=== PATIENT | female | born 1990 | race Caucasian/White ===

== ENCOUNTER 2016-07-11 15:32 | Emergency (ER) | payer MEDICAID ==
[2016-07-11 16:08] LABS: UDS - AMPHET NEGATIVE QUAL (NEGATIVE); UDS - BARB NEGATIVE QUAL (NEGATIVE); UDS - BENZO NEGATIVE QUAL (NEGATIVE); UDS - COCAINE NEGATIVE QUAL (NEGATIVE); UDS - METH NEGATIVE QUAL (NEGATIVE); UDS - OPIATE NEGATIVE QUAL (NEGATIVE); UDS - PCP NEGATIVE QUAL (NEGATIVE); UDS - THC POSITIVE QUAL (NEGATIVE)
[2016-07-11 17:40] LABS: BASOPHILS 0.4 % (0.0-2.0); EOSINOPHILS 3.7 % (0-7); HEMATOCRIT 42.7 % (36.0-48.0); HEMOGLOBIN 14.6 g/dL (12-16); IMMATURE GRANULOCYTES 0.3 % (0-5); LYMPHOCYTES 25.9 % (15-50); MCH 32.3 pg (26.0-34.0); MCHC 34.2 g/dL (31.0-37.0); MCV 94.5 fL (80.0-100.0); MEAN PLATELET VOLUME 9.1 fL (7.4-10.4); MONOCYTES 7.2 % (2-11); NEUTROPHILS 62.5 % (40-80); PLATELET COUNT 238 10x3/uL (130-400); RBC 4.52 10x6/uL (4.00-5.40); RDW 12.6 % (11.5-14.5); WBC 7.8 10x3/uL (4.8-10.8)
[2016-07-11 18:16] LABS: ALBUMIN 3.6 g/dL (3.4-5.0); ALKALINE PHOSPHATASE 57 U/L (46-116); ALT (SGPT) 24 U/L (10-68); BILIRUBIN - TOTAL 0.71 mg/dL (0.2-1.3); CALC OSMOLALITY 278 mosm/kg (275-300); CALCIUM 8.5 mg/dL (8.5-10.1); CARBON DIOXIDE 25.9 mmol/L (21.0-32.0); CHLORIDE - SERUM 108 mmol/L (98-107); CREATININE - SERUM 0.7 mg/dL (0.6-1.3); GLUCOSE 95 mg/dL (74-106); POTASSIUM - SERUM 3.9 mmol/L (3.5-5.1); SODIUM 141 mmol/L (136-145); UREA NITROGEN 7 mg/dL (7-18); eGFR NON AFRICAN AMERICAN > 90 mL/min (90-120)
== END 2016-07-11 19:00 | disposition home or self-care (01) ==
LOC: D.ER 15:32
PROVIDERS: Emergency Medicine; Physician Assistant Medical
DX: G40.909 Epilepsy, unspecified, not intractable, without status epilepticus (principal); F32.9 Major depressive disorder, single episode, unspecified; I10 Essential (primary) hypertension; F17.200 Nicotine dependence, unspecified, uncomplicated

== ENCOUNTER 2018-04-24 20:20 | Outpatient (CLI) | payer MEDICAID ==
[2018-04-24 22:34] LABS: APPEARANCE CLEAR (CLEAR); BILIRUBIN NEGATIVE (NEGATIVE); COLOR YELLOW (YELLOW); GLUCOSE NEGATIVE (NEGATIVE); KETONE MODERATE mg/dL (NEGATIVE); NITRITE NEGATIVE (NEGATIVE); PROTEIN NEGATIVE (NEGATIVE); UROBILINOGEN NORMAL (NORMAL)
[2018-04-24 22:36] LABS: EPITHELIAL CELLS 0-5 /hpf (0-5); RED CELLS - URINE OCC /hpf (0-5)
[2018-04-24 22:37] LABS: BACTERIA MODERATE /hpf (NONE SEEN)
== END 2018-04-24 23:10 | disposition home or self-care (01) ==
LOC: D.LDO 20:20
PROVIDERS: Obstetrics & Gynecology
DX: O26.893 Other specified pregnancy related conditions, third trimester (principal); Z3A.32 32 weeks gestation of pregnancy; R51 Headache; R11.2 Nausea with vomiting, unspecified; R50.9 Fever, unspecified; O36.8130 Decreased fetal movements, third trimester, not applicable or unspecified

== ENCOUNTER → 2018-06-08 12:24 | Outpatient (CLI) | payer MEDICAID | END | disposition home or self-care (01) | LOC: D.LDO 12:24 | DX: O26.893 Other specified pregnancy related conditions, third trimester (principal); Z3A.28 28 weeks gestation of pregnancy ==

== ENCOUNTER → 2018-07-04 10:37 | Outpatient (CLI) | payer MEDICAID ==
--- NOTE | 2018-07-04 08:42 | NUR ---
PT SITTING UP IN BED. AWAKE. AAO X 3. VSS. HRRR WITHOUT AUDIBLE MURMUR. BBS CLEAR. BS X 4. ABDOMEN SOFT/NON-DISTENDED. FUNDUS FIRM AT U/2. RUBRA LOCHIA SMALL AMT. MILD EDEMA NOTED TO PERINEUM. NEG HOMANS' SIGN. NO EDEMA NOTED TO BLE. PT C/O PAIN TO PERINEUM OF "6" ON 0-10 PAIN SCALE.
== END | disposition home or self-care (01) ==
LOC: D.LDO 10:37
PROVIDERS: Obstetrics & Gynecology
DX: O24.419 Gestational diabetes mellitus in pregnancy, unspecified control (principal); Z3A.32 32 weeks gestation of pregnancy

== ENCOUNTER 2018-07-10 17:58 | Outpatient (CLI) | payer MEDICAID ==
[2018-07-10 19:07] LABS: HEMATOCRIT 42.2 % (36.0-48.0); HEMOGLOBIN 14.4 g/dL (12-16); MCH 31.6 pg (26.0-34.0); MCHC 34.1 g/dL (31.0-37.0); MCV 92.7 fL (80.0-100.0); MEAN PLATELET VOLUME 9.4 fL (7.4-10.4); RBC 4.55 10x6/uL (4.00-5.40); RDW 14.4 % (11.5-14.5); WBC 9.7 10x3/uL (4.8-10.8)
[2018-07-10 19:30] LABS: ALT (SGPT) 22 U/L (10-68); CALC OSMOLALITY 275 mosm/kg (275-300); CALCIUM 8.5 mg/dL (8.5-10.1); CARBON DIOXIDE 22.4 mmol/L (21.0-32.0); CHLORIDE - SERUM 102 mmol/L (98-107); CREATININE - SERUM 0.7 mg/dL (0.6-1.3); GLUCOSE 111 mg/dL (74-106); POTASSIUM - SERUM 3.4 mmol/L (3.5-5.1); SODIUM 138 mmol/L (136-145); UREA NITROGEN 10 mg/dL (7-18); URIC ACID 4.2 mg/dL (2.6-7.2); eGFR NON AFRICAN AMERICAN > 90 mL/min (90-120)
[2018-07-12 00:48] LABS: PROTEIN - URINE 24.5 mg/dL (0.0-11.9)
== END 2018-07-10 21:00 | disposition home or self-care (01) ==
LOC: D.LDO 17:58
PROVIDERS: Obstetrics & Gynecology
DX: O26.899 Other specified pregnancy related conditions, unspecified trimester (principal); Z3A.00 Weeks of gestation of pregnancy not specified

== ENCOUNTER → 2018-07-13 15:24 | Outpatient (CLI) | payer MEDICAID | END | disposition home or self-care (01) | LOC: D.LDO 15:24 | DX: O24.419 Gestational diabetes mellitus in pregnancy, unspecified control (principal); Z3A.33 33 weeks gestation of pregnancy ==

== ENCOUNTER → 2018-07-16 15:33 | Outpatient (CLI) | payer MEDICAID | END | disposition home or self-care (01) | LOC: D.LDO 15:33 | DX: O13.3 Gestational [pregnancy-induced] hypertension without significant proteinuria, third trimester (principal); Z3A.34 34 weeks gestation of pregnancy; O24.419 Gestational diabetes mellitus in pregnancy, unspecified control ==

== ENCOUNTER → 2018-07-20 11:37 | Outpatient (CLI) | payer MEDICAID ==
[2018-07-20 13:03] LABS: BASOPHILS 0.2 % (0-2); HEMATOCRIT 40.7 % (36.0-48.0); HEMOGLOBIN 13.8 g/dL (12-16); IMMATURE GRANULOCYTES 0.3 % (0-5); LYMPHOCYTES 17.3 % (15-50); MCH 31.9 pg (26.0-34.0); MCHC 33.9 g/dL (31.0-37.0); MEAN PLATELET VOLUME 9.7 fL (7.4-10.4); NEUTROPHILS 74.2 % (40-80); PLATELET COUNT 257 10x3/uL (130-400); RBC 4.33 10x6/uL (4.00-5.40); RDW 14.3 % (11.5-14.5); WBC 8.7 10x3/uL (4.8-10.8)
[2018-07-20 13:21] LABS: ALT (SGPT) 29 U/L (10-68); CALC OSMOLALITY 275 mosm/kg (275-300); CALCIUM 7.8 mg/dL (8.5-10.1); CARBON DIOXIDE 24.9 mmol/L (21.0-32.0); CHLORIDE - SERUM 105 mmol/L (98-107); CREATININE - SERUM 0.6 mg/dL (0.6-1.3); GLUCOSE 97 mg/dL (74-106); POTASSIUM - SERUM 3.9 mmol/L (3.5-5.1); SODIUM 139 mmol/L (136-145); UREA NITROGEN 8 mg/dL (7-18); URIC ACID 4.2 mg/dL (2.6-7.2); eGFR NON AFRICAN AMERICAN > 90 mL/min (90-120)
[2018-07-22 22:02] LABS: PROTEIN - URINE 68.2 mg/dL (0.0-11.9)
== END | disposition home or self-care (01) ==
LOC: D.LDO 11:37
PROVIDERS: Obstetrics & Gynecology
DX: O26.899 Other specified pregnancy related conditions, unspecified trimester (principal); Z3A.00 Weeks of gestation of pregnancy not specified

== ENCOUNTER → 2018-07-21 13:47 | Outpatient (CLI) | payer MEDICAID | END | disposition home or self-care (01) | LOC: D.LDO 13:47 → D.LABREF 13:47 | DX: O26.899 Other specified pregnancy related conditions, unspecified trimester (principal); Z3A.00 Weeks of gestation of pregnancy not specified ==

== ENCOUNTER → 2018-07-24 16:18 | Outpatient (CLI) | payer MEDICAID | END | disposition home or self-care (01) | LOC: D.LDO 16:18 | DX: O24.913 Unspecified diabetes mellitus in pregnancy, third trimester (principal); O10.913 Unspecified pre-existing hypertension complicating pregnancy, third trimester; Z3A.35 35 weeks gestation of pregnancy ==

== ENCOUNTER 2018-07-27 18:55 | Outpatient (CLI) | payer MEDICAID | END 2018-07-27 20:58 | disposition home or self-care (01) | LOC: D.LDO 18:55 | DX: O26.899 Other specified pregnancy related conditions, unspecified trimester (principal); Z3A.00 Weeks of gestation of pregnancy not specified ==

== ENCOUNTER → 2018-07-30 11:08 | Outpatient (CLI) | payer MEDICAID | END | disposition home or self-care (01) | LOC: D.US 11:08 | DX: O24.419 Gestational diabetes mellitus in pregnancy, unspecified control (principal); Z3A.00 Weeks of gestation of pregnancy not specified ==

== ENCOUNTER → 2018-07-30 12:07 | Outpatient (CLI) | payer MEDICAID | END | disposition home or self-care (01) | LOC: D.LDO 12:07 | DX: O24.913 Unspecified diabetes mellitus in pregnancy, third trimester (principal); O10.913 Unspecified pre-existing hypertension complicating pregnancy, third trimester; Z3A.36 36 weeks gestation of pregnancy ==

== ENCOUNTER 2018-08-02 12:04 | Outpatient (CLI) | payer MEDICAID | END 2018-08-02 16:33 | LOC: D.LDO 12:04 → D.LD 12:04 → D.LDO 16:33 → D.LD 16:33 | DX: O24.913 Unspecified diabetes mellitus in pregnancy, third trimester (principal); O10.913 Unspecified pre-existing hypertension complicating pregnancy, third trimester; Z3A.49 Greater than 42 weeks gestation of pregnancy ==

== ENCOUNTER 2018-08-02 16:49 | Outpatient (CLI) | payer MEDICAID ==
[2018-08-02 17:26] LABS: BASOPHILS 0.1 % (0-2); EOSINOPHILS 0.4 % (0-7); HEMATOCRIT 42.3 % (36.0-48.0); HEMOGLOBIN 14.6 g/dL (12-16); IMMATURE GRANULOCYTES 0.3 % (0-5); MCH 31.8 pg (26.0-34.0); MCHC 34.5 g/dL (31.0-37.0); MCV 92.2 fL (80.0-100.0); MEAN PLATELET VOLUME 9.5 fL (7.4-10.4); MONOCYTES 6.7 % (2-11); NEUTROPHILS 79.5 % (40-80); PLATELET COUNT 288 10x3/uL (130-400); RBC 4.59 10x6/uL (4.00-5.40); WBC 11.7 10x3/uL (4.8-10.8)
[2018-08-02 17:43] LABS: ALBUMIN 2.1 g/dL (3.4-5.0); ALKALINE PHOSPHATASE 132 U/L (46-116); ALT (SGPT) 23 U/L (10-68); BILIRUBIN - DIRECT 0.09 mg/dL (0.00-0.30); BILIRUBIN - INDIRECT 0.25 mg/dL (0.00-1.00); BILIRUBIN - TOTAL 0.34 mg/dL (0.2-1.3); CALC OSMOLALITY 277 mosm/kg (275-300); CALCIUM 7.8 mg/dL (8.5-10.1); CARBON DIOXIDE 22.1 mmol/L (21.0-32.0); CHLORIDE - SERUM 105 mmol/L (98-107); CREATININE - SERUM 0.6 mg/dL (0.6-1.3); GLUCOSE 122 mg/dL (74-106); POTASSIUM - SERUM 3.5 mmol/L (3.5-5.1); PROTEIN - SERUM 6.2 g/dL (6.4-8.2); SODIUM 139 mmol/L (136-145); UREA NITROGEN 10 mg/dL (7-18); URIC ACID 4.4 mg/dL (2.6-7.2); eGFR NON AFRICAN AMERICAN > 90 mL/min (90-120)
[2018-08-04 00:23] LABS: PROTEIN - URINE 34.7 mg/dL (0.0-11.9)
== END 2018-08-02 20:04 ==
LOC: D.LDO 16:49 → D.LD 16:52 → D.LDO 20:04
PROVIDERS: Obstetrics & Gynecology
DX: O26.893 Other specified pregnancy related conditions, third trimester (principal); Z3A.36 36 weeks gestation of pregnancy

== ENCOUNTER → 2018-08-04 00:35 | Outpatient (CLI) | payer MEDICAID | END | disposition home or self-care (01) | LOC: D.LDO 00:35 | DX: O13.9 Gestational [pregnancy-induced] hypertension without significant proteinuria, unspecified trimester (principal); O24.419 Gestational diabetes mellitus in pregnancy, unspecified control; Z3A.00 Weeks of gestation of pregnancy not specified ==

== ENCOUNTER → 2018-08-09 10:16 | Outpatient (CLI) | payer MEDICAID | END | disposition home or self-care (01) | LOC: D.LDO 10:16 | PROVIDERS: ATTEND Obstetrics & Gynecology | DX: O13.3 Gestational [pregnancy-induced] hypertension without significant proteinuria, third trimester (principal); O24.913 Unspecified diabetes mellitus in pregnancy, third trimester; Z3A.37 37 weeks gestation of pregnancy ==

== ENCOUNTER 2018-08-12 22:05 | Outpatient (CLI) | payer MEDICAID ==
[2018-08-12 22:26] LABS: APPEARANCE CLEAR (CLEAR); BILIRUBIN NEGATIVE (NEGATIVE); COLOR YELLOW (YELLOW); GLUCOSE NEGATIVE (NEGATIVE); KETONE NEGATIVE (NEGATIVE); NITRITE NEGATIVE (NEGATIVE); PROTEIN NEGATIVE (NEGATIVE); UROBILINOGEN NORMAL (NORMAL)
[2018-08-12 22:34] LABS: UDS - AMPHET NEGATIVE QUAL (NEGATIVE); UDS - BARB NEGATIVE QUAL (NEGATIVE); UDS - BENZO NEGATIVE QUAL (NEGATIVE); UDS - COCAINE NEGATIVE QUAL (NEGATIVE); UDS - OPIATE NEGATIVE QUAL (NEGATIVE); UDS - PCP NEGATIVE QUAL (NEGATIVE); UDS - THC NEGATIVE QUAL (NEGATIVE)
[2018-08-16 23:48] VITALS: BMI 44.0
== END 2018-08-12 22:55 | disposition home or self-care (01) ==
LOC: D.LDO 22:05
PROVIDERS: ATTEND Obstetrics & Gynecology
DX: O26.893 Other specified pregnancy related conditions, third trimester (principal); Z3A.38 38 weeks gestation of pregnancy

== ENCOUNTER → 2018-08-14 16:23 | Outpatient (CLI) | payer MEDICAID ==
[~2018-08-14 16:23] MED LIST: ACETAMINOPHEN325 MG PO; GLUCOPHAGE500 MG PO; GLYBURIDE2.5 MG PO; PRENAVITE1 TAB PO
[2018-08-14 18:00] LABS: APPEARANCE CLEAR (CLEAR); BILIRUBIN NEGATIVE (NEGATIVE); COLOR YELLOW (YELLOW); GLUCOSE NEGATIVE (NEGATIVE); KETONE NEGATIVE (NEGATIVE); NITRITE NEGATIVE (NEGATIVE); PROTEIN TRACE mg/dL (NEGATIVE); UROBILINOGEN NORMAL (NORMAL)
[2018-08-14 18:03] LABS: EPITHELIAL CELLS 0-5 /hpf (0-5); RED CELLS - URINE OCC /hpf (0-5); WHITE CELLS - URINE 0-5 /hpf (0-5)
[2018-08-14 18:04] LABS: BACTERIA FEW /hpf (NONE SEEN)
[2018-08-16 23:48] VITALS: BMI 44.0
== END | disposition home or self-care (01) ==
LOC: D.LDO 16:23
PROVIDERS: ATTEND Obstetrics & Gynecology
DX: O13.3 Gestational [pregnancy-induced] hypertension without significant proteinuria, third trimester (principal); Z3A.38 38 weeks gestation of pregnancy

== ENCOUNTER → 2018-08-15 17:28 | Outpatient (CLI) | payer MEDICAID ==
[2018-08-16 23:48] VITALS: BMI 44.0
== END | disposition home or self-care (01) ==
LOC: D.LDO 17:28
PROVIDERS: ATTEND Obstetrics & Gynecology
DX: O26.893 Other specified pregnancy related conditions, third trimester (principal); N89.8 Other specified noninflammatory disorders of vagina

== ENCOUNTER 2018-08-16 20:42 | Inpatient (IN) | payer MEDICAID ==
[~2018-08-16] VITALS: Ht 167.6 cm; Wt 123.4 kg
[2018-08-16 23:08] LABS: HEMATOCRIT 43.4 % (36.0-48.0); HEMOGLOBIN 15.1 g/dL (12-16); MCH 31.9 pg (26.0-34.0); MCHC 34.8 g/dL (31.0-37.0); MCV 91.6 fL (80.0-100.0); MEAN PLATELET VOLUME 9.7 fL (7.4-10.4); RBC 4.74 10x6/uL (4.00-5.40); RDW 13.8 % (11.5-14.5)
[2018-08-16 23:19] LABS: UDS - AMPHET NEGATIVE QUAL (NEGATIVE); UDS - BARB NEGATIVE QUAL (NEGATIVE); UDS - BENZO NEGATIVE QUAL (NEGATIVE); UDS - COCAINE NEGATIVE QUAL (NEGATIVE); UDS - OPIATE NEGATIVE QUAL (NEGATIVE); UDS - PCP NEGATIVE QUAL (NEGATIVE); UDS - THC NEGATIVE QUAL (NEGATIVE)
[2018-08-16] MEDS ORDERED: GLYBURIDE2.5 MG PO (23:46)
[2018-08-16] MEDS ORDERED: PRENAVITE1 TAB PO (23:47)
[2018-08-16] MEDS ORDERED: GLUCOPHAGE500 MG PO (23:47)
[2018-08-16] MEDS ORDERED: ACETAMINOPHEN325 MG PO (23:47)
[2018-08-16 23:48] VITALS: BP 139/84; Ht 167.6 cm; Wt 123.4 kg
--- NOTE | 2018-08-17 19:33 | NUR ---
REMAINS IN NBN WITH . WILL CONTINUE TO MONITOR AND ASSIST PRN.
--- NOTE | 2018-08-17 19:38 | NUR ---
TO L&D DESK, REPORTS THAT 'S BATH IS FINISHED. AMBULATORY TO ROOM 1257 FOR CONTINUED PP CARE. ORIENTED TO ROOM, CALL LIGHT USE, BED RAILS, AND BATHROOM, AND HOW TO PHONE NBN FROM ROOM, VERBALIZES UNDERSTANDING. VSS. SHIFT ASSESSMENT COMPLETED. PAIN 2/10, ABD CRAMPING AND PERINUM "SORENESS." DENIES NEED FOR INTERVENTION AT THIS TIME. RESPIRATIONS REGULAR AND UNLABORED WITH CLEAR AND EQUAL BREATH SOUNDS BILATERALLY, NO SOB NOTED. BOWEL SOUNDS PRESENT AND ACTIVE X4. 2+ PERINEAL EDEMA NOTED, ICE PACK APPLIED. REINFORCED INSTRUCTION ON PERIBOTTLE USE WITH EACH VOID, VERBALIZED UNDERSTANDING AND STATES THAT SHE DID THE SAME PERICARE WITH HER FIRST CHILD WELL. 2+ BLE EDEMA NOTED. PIV TO LEFT FA, FLUSHES WITHOUT DIFFICULTY, NO S/S OF INFILTRATION NOTED. REFUSES ICE WATER AND OTHER BEVERAGES, STATES THAT FAMILY WILL BE BRINGING HER SOMETHING D/T "BEING A GERMAPHOBE. I JUST CAN'T MAKE MYSELF EAT OR DRINK HOSPITAL STUFF." FUNDUS FIRM, MIDLINE AND U2 WITH SMALL RUBRA LOCHIA, NO CLOTS NOTED. INSTRUCTED TO NOTIFY RN IF SHE NOTICES THAT SHE IS PASSING CLOTS WHEN SHE VOIDS, VERBALIZES UNDERSTANDING. BED IN LOW POSITION WITH UPPER SIDE RAILS RAISED X2. CALL LIGTH AND PHONE WITHIN REACH. WILL CONTINUE TO MONITOR AND ASSIST PRN.
--- NOTE | 2018-08-17 20:29 | NUR ---
TUX AND DERMAPLAST PROVIDED. PT INSTRUCTED ON USE, VERBALIZES UNDERSTANDING AND STATES SHE WILL CALL IF ASSISTANCE IS NEEDED OR SHE HAS QUESTIONS. NBN CALLED FOR UPDATE ON INFANT PER PT REQUEST. VISITORS IN ROOM. DENIES NEEDS AT THIS TIME. BED IN LOW POSITION WITH UPPER SIDE RAILS RAISED X2. CALL LIGHT AND PHONE WITHIN REACH. WILL CONTINUE TO MONITOR AND ASSIST PRN.
--- NOTE | 2018-08-17 21:16 | NUR ---
ROUNDS MADE. PT CONTINUES TO CONVERSE WITH FAMILY MEMBERS AND VISITORS. STATES THAT HER MOTHER IS GOING TO THE SPEND THE NIGHT WITH HER. LINENS PROVIDED. DENIES ADDITIONAL NEEDS AT THIS TIME. CURRENTLY EATING MEAL BROUGHT BY FAMILY. BED IN LOW POSITION WITH UPPER SIDE RAILS RAISED X2. CALL LIGHT AND PHONE WITHIN REACH. WILL CONTINUE TO MONITOR AND ASSIST PRN.
--- NOTE | 2018-08-17 22:22 | NUR ---
DANYELLE NGUYEN GUT CARRIER AT BEDSIDE ASSISTING WITH BF. C/O CRAMPING WITH BF. INSTRUCTED THAT THIS WAS NORMAL AND TO BE EXPECTED, VERBALIZED UNDERSTANDING. STATES THAT SHE VOIDED PRIOR TO BEGINNING BF. MODERATE AMT RUBRA LOCHIA NOTED ON PERIPAD THAT PT HAD THROWN AWAY, DENIES PASSING CLOTS AND NO CLOTS NOTED TO PADS. REPORTS THAT SHE USED PERICARE PRODUCTS INSTRUCTED AND DENIES QUESTIONS. BED IN LOW POSITION WITH UPPER SIDE RAILS RAISED X2. CALL LIGHT AND PHONE WITHIN REACH. WILL CONTINUE TO MONITOR AND ASSIST PRN.
--- NOTE | 2018-08-17 22:45 | NUR ---
ASSISTED WITH BF PER REQUEST. STATES THAT SHE CAN'T GET INFANT LATCHED. NIPPLE SHEILD OFFERED AND USE DEMONSTRATED, PT STATES THAT DOESN'T LIKE SHEILD. GRAPE JELLY USE TO ASSIST WITH LATCH DISCUSSED, PT AGREEABLE, PROVIDED. ASSISTED PT TO GET INFANT LATCH. GOOD LATCH NOTED FOR 13 MINUTES WITH STRONG SUCK AND SWALLOW NOTED. UNABLE TO WAKE TO LATCH TO RIGHT BREAST, ENCOURAGED SKIN TO SKIN, MOM AGREEABLE. PLACED SKIN TO SKIN, BLANKETS PLACED OVER AND MOM, INSTRUCTED TO KEEP COVERED, VERBALIZES UNDERSTANDING. DENIES ADDITIONAL NEEDS. BED IN LOW POSITION WITH UPPER SIDE RAILS RAISED X2. CALL LIGHT AND PHONE WITHIN REACH. WILL CONTINUE TO MONITOR AND ASSIST PRN.
--- NOTE | 2018-08-18 | NUR ---
C/O PAIN 12/19, INTERMITTENT ABD CRAMPING, PERINEAL STINGING CONSTANTLY. REQUESTS TYLENOL AND TORADOL BE GIVEN TOGETHER, MEDS PROVIDED PER ORDER AND PT REQUEST. REPORTS THAT SHE HASN'T VOIDED SINCE FIRST GETTING TO ROOM, EDUCATED ON IMPORTANCE OF VOIDING AT LEAST Q 2 HOURS, VERBALIZES UNDERSTANDING AND UP TO VOID. PERICARE DONE PER PT. NEW ICE PACK PROVIDED PER REQUEST FOR PERINUM. BACK TO BED POST VOID. PLACED BACK SKIN TO SKIN PER PT REQUEST. BED IN LOW POSITION WITH UPPER SIDE RAILS RAISED X2. CALL LIGHT AND PHONE WITHIN REACH.
--- NOTE | 2018-08-18 00:47 | NUR ---
PAIN REASSESSMENT COMPLETED. 08/19. DENIES NEED FOR ADDITIONAL INTERVENTION. BONDING WITH SKIN TO SKIN. BED IN LOW POSITION WITH UPPER SIDE RAILS RAISED X2. CALL LIGHT AND PHONE WITHIN REACH. WILL CONTINUE TO MONITOR AND ASSIST PRN.
--- NOTE | 2018-08-18 02:18 | NUR ---
ROUNDS MADE. INFANT SKIN TO SKIN WITH PT. DENIES NEEDS AT THIS TIME. STATES THAT SHE JUST VOIDED. SMALL AMT RUBRA LOCHIA TO PERIPADS, NO CLOTS NOTED. DENIES NEEDS AT THIS TIME. BED IN LOW POSITION WITH UPPER SIDE RAILS RAISED X2. CALL LIGHT AND PHONE WITHIN REACH. PT'S MOTHER REMAINS AT BEDSIDE, SUPPORTIVE AND ATTENTIVE TO PT AND HER NEEDS. WILL CONTINUE TO MONITOR AND ASSIST PRN.
--- NOTE | 2018-08-18 04:02 | NUR ---
ROUNDS MADE. PT RESTING IN SEMI FOWLERS POSITION WITH EYES CLOSED, RESPIRATIONS REGULAR AND UNLABORED, NO S/S OF DISTRESS NOTED. BED IN LOW POSITION WITH UPPER SIDE RAILS RAISED X2. CALL LIGHT AND PHONE WITHIN REACH. WILL CONTINUE TO MONITOR AND ASSIST PRN.
--- NOTE | 2018-08-18 04:53 | OP ---
PATIENT NAME: PHILLY AVALOS MEDICAL RECORD: [id number] :86 LOCATION:[id number] ADMISSION DATE:08/16/18 SURGEON: OZZIE LARSON MD DATE OF OPERATION: 08/17/2018 DELIVERY NOTE PREDELIVERY DIAGNOSES: 1. Gestational age 38+5 weeks. 2. History of -induced hypertension. POSTDELIVERY DIAGNOSES: 1. Gestational age 38+5 weeks. 2. History of -induced hypertension. PROCEDURE: Induction of labor with vaginal delivery. ATTENDING: Ozzie Larson MD ANESTHETIC: Continuous lumbar/epidural. FINDINGS: Viable male infant, DOMINGA presentation, Apgars 9 and 9, weight is 6 pounds 15 ounces. First-degree vaginal lacerations repaired with 3-0 and 4-0 chromic. Placenta spontaneous and intact. ESTIMATED BLOOD LOSS: 300 cc. DISPOSITION: Mother and infant recovered in the room. TRANSINT:[id number] Voice Confirmation ID: [id number] DOCUMENT ID: [id number] OZZIE LARSON MD at 0453 CC: [id number] DICTATION DATE: 08/17/18 1324 ACTUARIAL SCIENCE PROFESSOR: 08/17/18 1432 ADM IN [facility] [address] [place] [address]
[2018-08-18 06:15] LABS: BASOPHILS 0.2 % (0-2); EOSINOPHILS 2.4 % (0-7); HEMATOCRIT 39.3 % (36.0-48.0); HEMOGLOBIN 13.6 g/dL (12-16); IMMATURE GRANULOCYTES 0.2 % (0-5); LYMPHOCYTES 29.8 % (15-50); MCH 31.9 pg (26.0-34.0); MCHC 34.6 g/dL (31.0-37.0); MEAN PLATELET VOLUME 9.2 fL (7.4-10.4); MONOCYTES 5.5 % (2-11); NEUTROPHILS 61.9 % (40-80); RBC 4.27 10x6/uL (4.00-5.40); RDW 14.2 % (11.5-14.5); WBC 10.4 10x3/uL (4.8-10.8)
[2018-08-18 06:29] LABS: PLATELET COUNT 223 10x3/uL (130-400)
[2018-08-18 07:22] VITALS: BP 101/59; BP 136/71
--- NOTE | 2018-08-18 07:30 | NUR ---
RECEIVED PT SITTING UP IN BED. VSS. HRRR WITHOUT AUDIBLE MURMUR. BBS CLEAR. BS X 4. ABDOMEN SOFT/NON-DISTENDED. FUNDUS FIRM AT U/1. RUBRA LOCHIA SMALL AMT. NO CLOTS OR HEAVY BLEEDING PER PT STATES. NEG HOMANS' SIGN. PPP. 2+/2+ EDEMA NOTED TO BLE. SL TO LEFT FOREARM. SITE CLEAR. PT DENIES NEEDS OR C/O AT THIS TIME. SR UPX 2. CALL LIGHT IN REACH.
--- NOTE | 2018-08-18 09:15 | NUR ---
PT SITTING UP IN BED. INFANT. DENIES C/O OR NEEDS.
--- NOTE | 2018-08-18 10:33 | NUR ---
PT SITTING UP IN BED. INFANT. DENIES PAIN OR NEEDS.
--- NOTE | 2018-08-18 12:15 | NUR ---
PT C/O PAIN TO PERINEUM OF "7" ON 0-10 PAIN SCALE. TORADOL 10 MG AND TYLENOL 1000 MG GIVEN PO ORDERED. PT INSTRUCTED ON MEDS. VERBALIZES UNDERSTANDING.
--- NOTE | 2018-08-18 13:00 | NUR ---
PT SITTING UP ON SIDE OF BED. VISITS WITH FAMILY. DENIES NEEDS OR C/O.
--- NOTE | 2018-08-18 14:39 | NUR ---
SL DC'D WITH CATHELON INTACT. PRESSURE BANDAGE TO SITE. PT MARCELINO WELL.
--- NOTE | 2018-08-18 15:00 | NUR ---
DISCHARGE INSTRUCTIONS GIVEN TO PT. PT VERBALIZES UNDERSTANDING OF ALL INSTRUCTIONS GIVEN. COPIES GIVEN TO PT. PT GIVEN TDAP 0.5 ML IM TO RIGHT DELTOID. BANDAID TO SITE. PT MARCELINO WELL.
--- NOTE | 2018-08-18 15:05 | NUR ---
PT READY FOR DISCHARGE. DISCHARGED IN STABLE CONDITION VIA AMBULATORY PER PT REQUEST. SO CARRYING IN CARSEAT. PT AND INFANT MARCELINO WELL.
--- NOTE | 2018-08-18 19:04 | DS ---
PATIENT:PHILLY AVALOS :86 MEDICAL RECORD: [id number] DISCHARGE SUMMARY ADMISSION DATE: 08/16/18 DISCHARGE DATE: 08/18/18 DATE OF ADMISSION: 08/16/2018 DATE OF DISCHARGE: 08/18/2018 ADMISSION DIAGNOSES: 1. at term. 2. History of induced hypertension. DISCHARGE DIAGNOSES: 1. Mother delivered at 38 weeks and 5 days. 2. -induced hypertension. ATTENDING: Carol Ann Olvera MD PROCEDURE PERFORMED: Induction of labor with vaginal delivery. HISTORY OF PRESENT ILLNESS: See the H&P in the chart. SUMMARY OF HOSPITALIZATION: The patient was admitted to the hospital and underwent Pitocin induction without incident. The patient was found to be eva too frequently for the side effect that was ordered. The patient went on to deliver vaginally without incident. At the time of discharge, she has adequate pain control on Tylenol and ketorolac. The patient has been encouraged to use [id number] medications for any discomforts. The patient has been given the standard precautions and will follow up with me in 6 weeks. TRANSINT:[id number] Voice Confirmation ID: [id number] DOCUMENT ID: [id number] CAROL ANN OLVERA MD at 1904 CC: [id number] DICTATION DATE: 08/18/18 0455 RETAIL SALES VITAMIN CONSULTANT: 08/18/18 0530 DIS IN 08/18/18 [facility] [address] [place] [address]
[2018-08-21 07:37] LABS: RAPID PLASMA REAGIN Non Reactive (Non Reactive)
== END 2018-08-18 15:05 | disposition home or self-care (01) | DRG 807 ==
LOC: D.LD 20:42 → D.SDCHOLD 08-18 08:36 → D.LD 08-18 08:40
PROVIDERS: ADMIT Obstetrics & Gynecology; ATTEND Obstetrics & Gynecology
PROC: 10E0XZZ Delivery of Products of Conception, External Approach (ICD-10-PCS; principal; 2018-08-16)
PROC: 0HQ9XZZ Repair Perineum Skin, External Approach (ICD-10-PCS; 2018-08-16)
PROC: 3E033VJ Introduction of Other Hormone into Peripheral Vein, Percutaneous Approach (ICD-10-PCS; 2018-08-16)
DX: O13.4 Gestational [pregnancy-induced] hypertension without significant proteinuria, complicating childbirth (principal); Z37.0 Single live birth; Z3A.38 38 weeks gestation of pregnancy; O70.0 First degree perineal laceration during delivery; O24.92 Unspecified diabetes mellitus in childbirth